=== PATIENT | female | born 1990 | race Caucasian/White ===

== ENCOUNTER 2017-12-04 16:43 | Emergency (ER) | payer SELFPAY ==
[~2017-12-04] VITALS: Ht 160 cm; Wt 68.0 kg
[2017-12-04 17:01] VITALS: Ht 160 cm; Wt 68.0 kg
[2017-12-04 18:25] VITALS: BP 123/86
== END 2017-12-04 18:40 | disposition home or self-care (01) ==
LOC: ED 16:43
DX: L02.11 Cutaneous abscess of neck (principal); F17.210 Nicotine dependence, cigarettes, uncomplicated; Z88.1 Allergy status to other antibiotic agents

== ENCOUNTER 2017-12-10 10:47 | Emergency (ER) | payer SELFPAY ==
[~2017-12-10] VITALS: Ht 160 cm; Wt 69.0 kg
[2017-12-10 10:55] VITALS: Ht 160 cm; Wt 69.0 kg
[2017-12-10 13:49] VITALS: BP 110/85
== END 2017-12-10 13:49 | disposition home or self-care (01) ==
LOC: ED 10:47
DX: L02.01 Cutaneous abscess of face (principal); L03.211 Cellulitis of face; S00.83XA Contusion of other part of head, initial encounter; Z88.6 Allergy status to analgesic agent; X58.XXXA Exposure to other specified factors, initial encounter; Y93.89 Activity, other specified; Y92.89 Other specified places as the place of occurrence of the external cause; Y99.8 Other external cause status
CPT/HCPCS: J2001